=== PATIENT | female | born 1990 | race Caucasian/White ===

== ENCOUNTER → 2020-05-24 | Outpatient (CLI) | payer BC | END | disposition home or self-care (01) | LOC: STAR 09:15 | PROVIDERS: ATTEND Anesthesiology | DX: Z20.828 Contact with and (suspected) exposure to other viral communicable diseases (principal) | CPT/HCPCS: 87635 ==

== ENCOUNTER 2020-05-28 10:23 | Day surgery (SDC) | payer BC ==
[~2020-05-28] VITALS: Ht 167.6 cm; Wt 81.0 kg
[2020-05-28 11:01] VITALS: BP 130/87
[2020-05-28] MEDS ORDERED: CHLORHEXIDINE 15 ML UDC MM STA (11:09)
[2020-05-28] MEDS ORDERED: PRENATAL VIT (11:09)
[2020-05-28] MEDS ORDERED: CHLORHEXIDINE 15 ML UDC ONE (11:19)
[2020-05-28] MEDS ORDERED: MISOPROSTOL 200 MCG TABLET ONE (11:28)
[2020-05-28] MEDS ORDERED: OXYTOCIN 10 UNITS/ML, 1ML ONE (11:28)
[2020-05-28] MEDS ORDERED: METHYLERGONOVINE 0.2 MG/ML IM ONE (11:28)
[2020-05-28] MEDS ORDERED: LACTATED RINGERS 1,000 ML IV SCH (11:30)
[2020-05-28 11:37] LABS: BASOPHILS % (AUTO) 1 % (0-1); EOSINOPHILS % (AUTO) 1 % (1-7); LYMPHOCYTES % (AUTO) 22 % (22-44); MEAN CORPUSCULAR HEMOGLOBIN 29.4 pg (27.0-34.8); MEAN CORPUSCULAR HGB CONC 33.7 g/dL (32.4-35.8); MEAN PLATELET VOLUME 8.3 fL (7.4-10.4); MONOCYTES % (AUTO) 7 % (2-9); NEUTROPHILS % (AUTO) 70 % (42-75); PLATELET COUNT 232 x10^3/uL (130-400); RED BLOOD COUNT 4.77 x10^6/uL (3.82-5.3); RED CELL DISTRIBUTION WIDTH 14.1 % (9.6-15.2)
[2020-05-28 11:44] LABS: MD NO
[2020-05-28 11:50] LABS: MICROSCOPIC NOT IND
[2020-05-28] MEDS ORDERED: FENTANYL PF 100 MCG/2ML ONE ×2 (12:07→12:08)
[2020-05-28] MEDS ORDERED: MIDAZOLAM 1 MG/ML, 2ML ONE (12:07)
[2020-05-28] MEDS ORDERED: DEXAMETHASONE 4 MG/ML, 1ML ONE (12:25)
[2020-05-28] MEDS ORDERED: ONDANSETRON 2MG/ML, 2ML ONE (12:25)
[2020-05-28] MEDS ORDERED: PROPOFOL 10 MG/ML, 20ML ONE (12:25)
[2020-05-28] MEDS ORDERED: OXYcodone 5 MG/5 ML ORAL.SOL UDC PO PRN (12:30)
[2020-05-28] MEDS ORDERED: ONDANSETRON 2MG/ML, 2ML IVPush PRN (12:30)
[2020-05-28] MEDS ORDERED: FENTANYL PF 100 MCG/2ML IV PRN (12:30)
[2020-05-28] MEDS ORDERED: ACETAMINOPHEN 325 MG TABLET PO PRN (12:30)
[2020-05-28] MEDS ORDERED: MEPERIDINE/PF 25MG/0.5ML IVPush PRN (12:30)
[2020-05-28] MEDS ORDERED: SILVER NITRATE STICK TP ONE (12:47)
== END 2020-05-28 14:35 | disposition home or self-care (01) ==
LOC: OUT 10:23
PROVIDERS: ATTEND Obstetrics & Gynecology
DX: O02.0 Blighted ovum and nonhydatidiform mole (principal); G43.909 Migraine, unspecified, not intractable, without status migrainosus; Z79.899 Other long term (current) drug therapy; Z88.0 Allergy status to penicillin; Z88.5 Allergy status to narcotic agent; Z88.8 Allergy status to other drugs, medicaments and biological substances; Z98.51 Tubal ligation status
CPT/HCPCS: 36415; 59820; 81003; 85025; 86850; 86900; 88305; J1100; J2250; J2405; J2590; J2704; J3010; J7120; J2210

== ENCOUNTER 2020-09-17 08:00 | Outpatient (CLI) | payer BC ==
[~2020-09-17 08:00] MED LIST: PRENATAL VIT
== END 2020-09-17 23:59 | disposition home or self-care (01) ==
LOC: STAR 08:00 → EDSTATUS 09-18 08:00
PROVIDERS: ATTEND Obstetrics & Gynecology
DX: Z20.822 Contact with and (suspected) exposure to COVID-19 (principal); O02.0 Blighted ovum and nonhydatidiform mole
CPT/HCPCS: U0003